=== PATIENT | male | born 1975 | race Caucasian/White ===

== ENCOUNTER → 2017-10-04 | Outpatient (CLI) | payer BC ==
--- NOTE | 2017-10-04 09:38 | NM ---
EXAMINATION TYPE: NM hepatobiliary w EF DATE OF EXAM: 10/04/2017 COMPARISON: Complete abdominal ultrasound September 05, 2017 HISTORY: Right upper quadrant pain per order. Pain for 2 months with diminished appetite per patient. TECHNIQUE: After the intravenous administration of 5.2 mCi Tc 99m Mebrofenin hepatobiliary scintigrap hy is performed. Immediate images post injection. FINDINGS: There is satisfactory initial accumulation of tracer by the liver. The gallbladder is visualized wit hin 20 minutes. The small bowel activity is noted within 25 minutes. At one hour 8 ounces of oral e nsure plus is given to mimic CCK and gallbladder ejection fraction is calculated at 91 %, not deviate d from the normal range. Therefore there is no scintigraphic evidence of cystic or common bile duct obstruction to suggest acute cholecystitis. IMPRESSION: Ejection fraction is 91%, some consider this abnormal or a hyperkinetic response. Correla te clinically. Technologist does not document if patient had symptoms upon drinking oral ensure.
== END | disposition home or self-care (01) ==
LOC: RADNMMAIN 07:15
PROVIDERS: ATTEND Family Medicine
DX: R10.11 Right upper quadrant pain (principal)
CPT/HCPCS: 78226; A9537

== ENCOUNTER → 2022-03-10 | Outpatient (CLI) | payer BC ==
[2022-03-10 22:27] LABS: Basophils # (A) 0.03 X 10*3/uL (0.00-0.10); Basophils % (A) 0.4 %; Eosinophils # (A) 0.13 X 10*3/uL (0.04-0.35); Eosinophils % (A) 1.7 %; HCT 46.5 % (39.6-50.0); HGB 15.3 g/dL (13.0-17.0); Immature Grans, Automated 0.3 %; Lymphocytes # (A) 3.01 X 10*3/uL (0.90-5.00); Lymphocytes % (A) 38.4 %; MCH 28.5 pg (27.0-32.0); MCHC 32.9 g/dL (32.0-37.0); MCV 86.6 fL (80.0-97.0); Mean Platelet Volume 10.4 fL (9.5-12.2); Monocytes # (A) 0.42 X 10*3/uL (0.20-1.00); Monocytes % (A) 5.4 %; NRBC Per 100 WBC 0 /100 WBCS (0.0-0.0); Neutrophils # (A) 4.23 X 10*3/uL (1.80-7.70); Neutrophils % (A) 53.8 %; Platelet Count 263 X 10*3/uL (140-440); RBC 5.37 X 10*6/uL (4.40-5.60); RDW 13.2 % (11.5-14.5); WBC 7.84 X 10*3/uL (4.50-10.00)
[2022-03-10 22:38] LABS: Appearance,Urine Clear (Clear); Bilirubin,Urine Negative (Negative); Blood,Urine Negative (Negative); Color,Urine Yellow (Yellow); Ketones,Urine Trace mg/dL (Negative); Nitrite,Urine Negative (Negative); Specific Gravity,Urine 1.022 (1.001-1.030)
[2022-03-10 23:46] LABS: ALT 56 U/L (10-49); AST 36 U/L (14-35); African American GFR (CKD) 123.6 (60.0-200.0); Albumin 4.5 g/dL (3.8-4.9); Albumin/Globulin Ratio 2.08 (1.60-3.17); Alkaline Phosphatase 73 U/L (41-126); Blood Urea Nitrogen 9.2 mg/dL (9.0-27.0); Calcium 9.4 mg/dL (8.7-10.3); Carbon Dioxide 23.8 mmol/L (20.0-27.5); Chloride 102 mmol/L (96-109); Creatine Kinase 116 U/L (35-257); Globulin 2.2 g/dL (1.6-3.3); Glucose 80 mg/dL (70-110); Non-African American GFR(CKD) 106.6 (60.0-200.0); Potassium 4.2 mmol/L (3.5-5.5); Sodium 137 mmol/L (135-145); Total Protein 6.7 g/dL (6.2-8.2)
== END | disposition home or self-care (01) ==
LOC: LABWHC1 16:13
PROVIDERS: ATTEND Family Medicine
DX: Z12.5 Encounter for screening for malignant neoplasm of prostate (principal); I10 Essential (primary) hypertension
CPT/HCPCS: 36415; 80053; 81003; 82550; 84153; 84443; 85025

== ENCOUNTER → 2025-01-16 | Outpatient (CLI) | payer BC ==
--- NOTE | 2025-01-16 10:50 | CT ---
EXAMINATION TYPE: CT chest w con DATE OF EXAM: 01/16/2025 9:47 AM COMPARISON: None. CLINICAL INDICATION: Male, 49 years old with history of J44.9 COPD, copd TECHNIQUE: Axial images were obtained at 5 mm thick sections. Reconstructed images are reviewed on [employer] computer in the coronal plane. Contrast used:100ml mL of Isovue 300 with IV Contrast, (none if empty) Oral contrast used: (none if empty) CT DLP: 425.10 mGycm, Automated exposure control for dose reduction was used. FINDINGS: Portion of the thyroid visualized is normal. No suspicious lung nodules. Small bilateral pleural effusions are present. There are scattered bilate ral posterior infiltrates likely on the basis of compressive atelectasis. There is a 1.0 cm paratracheal lymph node. The ascending aorta diameter at the level of the main pul monary artery is 3.6 cm. The main pulmonary artery diameter at the bifurcation is 2.8 cm. No significant coronary artery calcifications. Limited CT sections are obtained through the upper abdomen. Abdomen is essentially unremarkable. IMPRESSION: 1. Small bilateral pleural effusions with adjacent compressive atelectasis. 2. 1 cm paratracheal lymph node. [facility], , 01/16/2025 10:47 AM
== END | disposition home or self-care (01) ==
LOC: RADCTMAIN 08:58
PROVIDERS: ATTEND Internal Medicine Critical Care Medicine
DX: J44.9 Chronic obstructive pulmonary disease, unspecified (principal); J90 Pleural effusion, not elsewhere classified; J98.11 Atelectasis
CPT/HCPCS: 71260; Q9967